=== PATIENT | male | born 1995 | race Caucasian/White ===

== ENCOUNTER 2022-05-21 22:56 | Observation (INO) | payer BC ==
[~2022-05-21] VITALS: Ht 180.3 cm; Wt 61.2 kg
[2022-05-21] MEDS ORDERED: PROCAINAMIDE HCL INJ 1,000 MG in DEXTROSE 5% 500ML 500 ML IV STA (23:17)
[2022-05-21] MEDS ORDERED: ADENOSINE 6MG/2ML 3 ML ONE (23:23)
[2022-05-21 23:28] LABS: BASOPHILS # (AUTO) 0.1 (0.0-0.1); BASOPHILS % 1.1 % (0.0-1.0); EOSINOPHILS # (AUTO) 0.1 (0.0-0.4); EOSINOPHILS % 1.7 % (0.0-6.0); HEMATOCRIT 49.1 % (38.2-49.6); HEMOGLOBIN 16.9 g/dL (14.0-18.0); LYMPHOCYTES # (AUTO) 2.3 (1.0-3.2); LYMPHOCYTES % 27.4 % (18.0-39.1); MEAN CORPUSCULAR HEMOGLOBIN 32.5 pg (28-32); MEAN CORPUSCULAR HGB CONC 34.4 g/dL (31-35); MEAN CORPUSCULAR VOLUME 94.4 fL (81-99); MONOCYTES # (AUTO) 0.9 (0.2-0.8); NEUTROPHILS % 58.4 % (38.7-80.0); PLATELET COUNT 214 x10e3/uL (140-360); RED CELL DISTRIBUTION WIDTH 11.9 % (11.7-14.4)
[2022-05-21] MEDS ORDERED: SODIUM CHLORIDE 0.9% 1000ML 1,000 ML IV ONE (23:30)
[2022-05-21] MEDS ORDERED: PROCAINAMIDE HCL INJ 100 MG/ML 10 ML VIAL ONE (23:30)
[2022-05-21] MEDS ORDERED: ADENOSINE 6 MG/2 ML VIAL IV ONE ×2 (23:30)
[2022-05-21] MEDS ORDERED: DEXTROSE 5% 1,000 ML IV ONE (23:39)
[2022-05-21 23:42] LABS: ALBUMIN 5.1 g/dL (3.5-5.0); ANION GAP 16.8 mmol/L (8-16); CALCIUM 10.2 mg/dL (8.4-10.2); CREATININE, SERUM 0.98 mg/dL (0.72-1.25); POTASSIUM 3.8 mmol/L (3.5-5.1)
[2022-05-21 23:43] LABS: ALBUMIN/GLOBULIN RATIO 1.3 (0.8-2.0)
[2022-05-22 00:29] LABS: AMPHETAMINES SCREEN,URINE NEGATIVE (NEGATIVE); BENZODIAZEPINES SCREEN,URINE NEGATIVE (NEGATIVE); PHENCYCLIDINE SCREEN,URINE NEGATIVE (NEGATIVE)
[2022-05-22] MEDS ORDERED: DILTIAZEM HCL 5 MG/ML 5 ML VIAL IV ONE (00:30)
[2022-05-22] MEDS ORDERED: SODIUM CHLORIDE 0.9% 1000ML 1,000 ML IV ONE (00:30)
[2022-05-22] MEDS ORDERED: ONDANSETRON HCL INJ 2MG/ML 2ML 2 MG/ML VIAL IV PRN (02:15)
[2022-05-22] MEDS ORDERED: SODIUM CHLORIDE FLUSH 10 ML SYR INJ PRN (02:15)
[2022-05-22 02:55] VITALS: BP 146/89
[2022-05-22 03:26] VITALS: BP 129/84
[2022-05-22] MEDS ORDERED: ACETAMINOPHEN 325 MG TAB PO PRN (05:30)
[2022-05-22] MEDS ORDERED: METOPROLOL TARTRATE INJ 1 MG/ML VIAL IV PRN (05:30)
[2022-05-22] MEDS ORDERED: POLYETHYLENE GLYCOL 3350 17 GM PACK PO PRN (05:30)
[2022-05-22] MEDS ORDERED: TEMAZEPAM 7.5 MG CAP PO PRN (05:30)
[2022-05-22] MEDS: METOPROLOL TARTRATE 50 MG TAB PO SCH ×2 (06:06→09:00)
[2022-05-22] MEDS ORDERED: FAMOTIDINE 20 MG TAB PO SCH (07:30)
[2022-05-22 08:30] VITALS: BP 146/89
[2022-05-22 08:42] VITALS: BP 135/87
[2022-05-22] MEDS ORDERED: DOCUSATE SODIUM 100 MG CAP PO SCH (09:00)
[2022-05-22 11:26] VITALS: BP 131/85
[2022-05-22] MEDS ORDERED: TOPROL XL50 MG PO (13:28)
[2022-05-22] MEDS ORDERED: ASPIRIN EC81 MG PO (13:28)
[2022-05-22] MEDS ORDERED: ONDANSETRON HCL 4 MG ORAL DISINTEGRATING TAB PO PRN (14:45)
[2022-05-23] MEDS ORDERED: METOPROLOL SUCCINATE 50 MG TAB XL PO SCH (09:00)
[2022-05-23] MEDS ORDERED: ASPIRIN 81 MG ENTERIC COATED PO SCH (09:00)
== END 2022-05-22 15:10 | disposition home or self-care (01) ==
LOC: ER 23:02 → ERHOLD 05-22 02:17 → MED/SURG 05-22 02:46
PROVIDERS: ADMIT Internal Medicine; ATTEND Internal Medicine
DX: I48.19 Other persistent atrial fibrillation (principal); Z79.01 Long term (current) use of anticoagulants; I47.1 Supraventricular tachycardia; K21.9 Gastro-esophageal reflux disease without esophagitis; I10 Essential (primary) hypertension; Z20.822 Contact with and (suspected) exposure to COVID-19
CPT/HCPCS: 0223U; 36415 ×2; 71045; 80053; 80307; 80320; 83735; 84443; 84484; 85025; 93005 ×2; 94799; 99285; G0378; J0153; J2690 ×2; J7030; J7060; J7070